=== PATIENT | female | born 1955 | race Caucasian/White ===

== ENCOUNTER 2017-04-30 07:35 | Emergency (ER) | payer OTHER ==
[~2017-04-30] VITALS: Ht 162.6 cm; Wt 108.9 kg
[~2017-04-30 07:35] MED LIST: METH-37 PO; NAPR500T4 PO; TRAM50TA PO
--- NOTE | 2017-04-30 08:27 | RAD ---
2 Views of the Chest 04/30/2017 10:01 AM Indication: Congestion, cough, fatigue Comparison: Chest radiograph December 31, 2014 Findings: Elevation of the left hemidiaphragm is noted. No pneumothorax or pleural effusion is seen. Cardiomediastinal silhouette is grossly stable. No new focal infiltrate is seen. No acute osseous changes are seen. Impression: Persistent elevation of the left hemidiaphragm. No evidence of acute cardiopulmonary process.
[2017-04-30] MEDS ORDERED: ACETAMINOPHEN 500 MG TABLET PO ONE (08:30)
[2017-04-30] MEDS ORDERED: KETOROLAC 60 MG/2 ML VIAL. IM ONE (08:30)
[2017-04-30 08:38] LABS: INFLUENZA A PATIENT NEGATIVE (NEGATIVE); INFLUENZA B PATIENT NEGATIVE (NEGATIVE)
--- NOTE | 2017-04-30 08:39 | PHYS DOC ---
Past History Past Medical History: No Pertinent History, Other Past Surgical History: Appendectomy, Cholecystectomy Alcohol Use: None Drug Use: None Adult General Chief Complaint Chief Complaint: COUGH [facility] HPI Patient is a pleasant otherwise healthy 61-year-old female with a month-long history of intermittent cough who presents with cough today. Over the last week patient is progressively had more "flulike symptoms including myalgias, runny nose, cough, ear pain for which she was seen by her doctor not once but twice. On the second visit to the doctor she received amoxicillin and Sudafed to treat her symptoms. But important over the now fifth they've her symptoms have not improved. She feels somewhat dehydrated although she is not having any nausea, vomiting, diarrhea. She denies any abdominal pain just generalized myalgias aches and pains without specific joint swelling, rash or other symptoms. [place] She's had fevers and chills but nothing documented. Patient's ear pain has been waxing and waning with no ear drainage or tinnitus. Respiratory no hearing loss and no dizziness. Patient further denies any recent travel outside the country. She is allergic to sulfa drugs Review of Systems Review of Systems Constitutional operative for subjective fevers and chills. Eyes: Denies change in visual acuity, redness, or eye pain [] HENT: Patient has had nasal congestion and ear pain without sore throat Respiratory: Patient has had nonproductive cough without shortness of breath Cardiovascular: No additional information not addressed in HPI [] GI: Denies abdominal pain, nausea, vomiting, bloody stools or diarrhea [] : Denies dysuria or hematuria [] Musculoskeletal: Denies back pain or joint pain patient is positive for myalgias [] Integument: Denies rash or skin lesions [] Neurologic: Denies headache, focal weakness or sensory changes although patient does feel dehydrated[] Endocrine: Denies polyuria or polydipsia [] All other systems were reviewed and found to be within normal limits, except as documented in this note. Current Medications Current Medications Current Medications Medications (Trade) Dose Ordered Sig/Lexy Start Time Stop Time Status Last Admin Dose Admin Acetaminophen (Tylenol) 1,000 mg 1X ONCE 04/30/17 08:30 04/30/17 08:31 DC 04/30/17 08:24 1,000 MG Ketorolac Tromethamine (Toradol) 60 mg 1X ONCE 04/30/17 08:30 04/30/17 08:31 DC 04/30/17 08:24 60 MG Allergies Allergies Allergies Coded Allergies Type Severity Reaction Last Updated Verified Sulfa (Sulfonamide Antibiotics) Allergy Unknown 12/31/14 No Physical Exam Physical Exam Other vital signs recorded on the chart at this time patient with in normal limits Constitutional: Well developed, well nourished, no acute distress, non-toxic appearance. [] HENT: Normocephalic, atraumatic, bilateral external ears normal, oropharynx moist, mild erythema no oral exudates, nose normal. Slight nasal discharge [TMs are clear bilaterally no evidence of otitis media] Eyes: PERRLA, EOMI, conjunctiva normal, no discharge. [] Neck: Normal range of motion, no tenderness, supple, no stridor. [] Cardiovascular:Heart rate regular rhythm, no murmur [] Lungs & Thorax: Bilateral breath sounds clear to auscultation [] Abdomen: Bowel sounds normal, soft, no tenderness, no masses, no pulsatile masses. [] Skin: Warm, dry, no erythema, no rash. [] . [] Extremities: No tenderness, no cyanosis, no clubbing, ROM intact, no edema. [] Neurologic: Alert and oriented X 3, normal motor function, normal sensory function, no focal deficits noted. [] Psychologic: Patient seems somewhat anxious but judgment is normal. [] Current Patient Data Vital Signs Vital Signs Date Time Temp Pulse Resp B/P (MAP) Pulse Ox O2 Delivery O2 Flow Rate FiO2 04/30/17 07:35 98.6 94 20 94 Room Air EKG EKG []EKG timed 8:07 AM demonstrates and read by me heart rate of 87 which is sinus rhythm with P wave there were QRS there is a MN interval 132 which is normal, QRS width of 80s/normal, QTC is 451 which is normal. There is no ST segment or T -wave changes consistent with acute coronary ischemia at this time there is no S1 Q 3 T3 noted. Radiology/Procedures Radiology/Procedures [] Course & Med Decision Making Course & Med Decision Making Pertinent Labs and Imaging studies reviewed. (See chart for details) Patient presented with URI-like symptoms already on amoxicillin and Sudafed. Patient says she feels somewhat dehydrated although her physical exam does not demonstrate that. She is asked to IV fluids but I have given oral challenges well which she tolerated without issue. She states she was mildly nauseated and I gave her some Zofran ODT. We discussed hydration IV versus oral and the benefits of oral hydration. She has an influenza swab pending and a chest x-ray. [] Time is now 8:32 AM patient's checks x-rays returned with no acute pulmonary infiltrate. [address] [address] IMAGING REPORT Signed PATIENT: LOLIS ROSAS ACCOUNT: [id number] : 1955 LOCATION: ER AGE: 61 SEX: F EXAM STATUS: REG ER ORD. PHYSICIAN: QUIQUE FREIRE MD REASON: Congestion, cough, fatigue PROCEDURE: CHEST PA & LATERAL 2 Views of the Chest 04/30/2017 10:01 AM Indication: Congestion, cough, fatigue Comparison: Chest radiograph December 31, 2014 Findings: Elevation of the left hemidiaphragm is noted. No pneumothorax or pleural effusion is seen. Cardiomediastinal silhouette is grossly stable. No new focal infiltrate is seen. No acute osseous changes are seen. Impression: Persistent elevation of the left hemidiaphragm. No evidence of acute cardiopulmonary process. DICTATED AND SIGNED BY: DOMINICK KLEIN MD DATE: 04/30/17822 CC: QUIQUE FREIRE MD; SHANNAN GIBBONS ~ Patient informed swab was also negative. I believe patient is suffering from a virus or a cold. I will prescribe her supportive medications like guaifenesin dextromethorphan in addition to her amoxicillin which she'll complete for the next 5 days and have her follow-up with her primary care doctor. Dragon Disclaimer Dragon Disclaimer This electronic medical record was generated, in whole or in part, using a voice recognition dictation system. Departure Departure: Impression: Primary Impression: Upper respiratory infection Disposition: 01 HOME, SELF-CARE Condition: STABLE Referrals: SHANNAN GIBBONS (PCP) Patient Instructions: Upper Respiratory Infection, Adult Additional Instructions: discharge: I've spoken with the patient and/or caregivers. I've explained the patient's condition, diagnosis and treatment plan based on information available to me at this time. I've answered the patient's and/or caregivers questions and addressed any concerns. The patient and/or caregivers have a good understanding the patient's diagnosis, condition and treatment plan as can be expected at this point. Vital signs have been stabilized. The patient's condition is stable for discharge from the emergency department. The patient will pursue further outpatient evaluation with her primary care provider or other designated consulting physician as outlined in the discharge instructions. Patient and/or caregivers are agreeable to this plan of care and follow-up instructions have been explained in detail. The patient and/or caregivers have received these instructions in written format and expressed understanding of these discharge instructions. The patient and her caregivers are aware that if any significant change in condition or worsening of symptoms should prompt him to immediately return to this of the closest emergency department. If an emergent department is not readily available I would encourage him to call 911. Scripts Ondansetron (ZOFRAN ODT) 4 Mg Tab.rapdis 1 TAB SL Q8HRS, #15 TAB Prov: QUIQUE FREIRE MD 04/30/17 Naproxen Sodium (NAPROXEN SODIUM) 275 Mg Tablet 275 MG PO BID for 7 Days, #14 TAB Prov: QUIQUE FREIRE MD 04/30/17 Guaifenesin/Dextromethorphan (MUCINEX DM ER 1,200-60 MG TAB) 1 Each Tbmp.12hr 1 TAB PO BID, #20 TAB 1 Refill Prov: QUIQUE FREIRE MD 04/30/17 QUIQUE FREIRE MD Apr 30, 2017 08:39
[2017-04-30 08:45] VITALS: BP 144/91
[2017-04-30] MEDS ORDERED: GUAI1TBM10 PO (08:48)
[2017-04-30] MEDS ORDERED: NAPR275T59 PO (08:48)
[2017-04-30] MEDS ORDERED: ONDA4TAB10 SL (08:48)
[2017-04-30] MEDS ORDERED: ONDANSETRON ODT 4 MG TAB.RAPDIS PO ONE (09:00)
--- NOTE | 2017-04-30 10:22 | EKG ---
[address] [address] Test Date: 2017-04-30 Test Time: 08:07:12 Pat Name: LOLIS ROSAS Department: Room: Gender: F Manager Drug: ASHLY : 1955 Requested By: QUIQUE FREIRE Order Number: [id number] Reading MD: Endy Baez MD Measurements Intervals [place] Rate: 87 P: 53 [place]: 132 QRS: 77 QRSD: 84 T: 35 QT: 370 QTc: 451 Interpretive Statements SINUS RHYTHM Electronically Signed On 05-06-2017 12:41:21 VICE PRINCIPAL by Endy Baez MD
== END 2017-04-30 08:55 | disposition home or self-care (01) ==
LOC: ER 07:35
DX: J06.9 Acute upper respiratory infection, unspecified (principal); H92.03 Otalgia, bilateral; Z88.2 Allergy status to sulfonamides
CPT/HCPCS: 71046; 87804; 93005; 96372; 99285; J1885; Q0162

== ENCOUNTER 2017-06-22 10:51 | Emergency (ER) | payer OTHER ==
[~2017-06-22 10:51] MED LIST changes: +GUAI1TBM10 PO; +NAPR-514 PO; +NAPR275T59 PO; -NAPR500T4 PO; +ONDA4TAB10 SL
[2017-06-22 10:55] VITALS: BP 143/81
[2017-06-22] MEDS ORDERED: IV NORMAL SALINE 1,000ML 1,000 ML IV ONE ×2 (11:15)
--- NOTE | 2017-06-22 11:20 | PHYS DOC ---
Past History Past Medical History: No Pertinent History, Other Past Surgical History: Appendectomy, Cholecystectomy Alcohol Use: None Drug Use: None Adult General Chief Complaint Chief Complaint: FLU SYMPTOM HPI HPI Patient is a 61 year old female who presents with nausea vomiting diarrhea. She states her was sick from Friday until yesterday with the same symptoms she has. She states on she developed nausea vomiting and loose stools. She denies any blood in her vomit or stools. She states this morning shortly had one loose stool and hasn't vomited today. She states yesterday she had 8 loose stools. She has some left over ODT Zofran and took it yesterday and today and feels better but still feels very tired. She denies any chest pain shortness of breath or abdominal pain. Review of Systems Review of Systems Constitutional: Denies fever or chills [] Eyes: Denies change in visual acuity, redness, or eye pain [] HENT: Denies nasal congestion or sore throat [] Respiratory: Denies cough or shortness of breath [] Cardiovascular: No additional information not addressed in HPI [] GI: Denies abdominal pain, or bloody stools, positive for nausea, vomiting, diarrhea [] : Denies dysuria or hematuria [] Musculoskeletal: Denies back pain or joint pain [] Integument: Denies rash or skin lesions [] Neurologic: Denies headache, focal weakness or sensory changes [] Endocrine: Denies polyuria or polydipsia [] All other systems were reviewed and found to be within normal limits, except as documented in this note. Current Medications Current Medications Current Medications Medications (Trade) Dose Ordered Sig/Lexy Start Time Stop Time Status Last Admin Dose Admin Sodium Chloride 1,000 ml @ 1,000 mls/hr 1X ONCE 06/22/17 11:15 06/22/17 12:14 Allergies Allergies Allergies Coded Allergies Type Severity Reaction Last Updated Verified Sulfa (Sulfonamide Antibiotics) Allergy Unknown 12/31/14 No Physical Exam Physical Exam Constitutional: Well developed, well nourished, no acute distress, non-toxic appearance. [] HENT: Normocephalic, atraumatic, bilateral external ears normal, oropharynx moist, no oral exudates, nose normal. [] Eyes: PERRLA, EOMI, conjunctiva normal, no discharge. [] Neck: Normal range of motion, no tenderness, supple, no stridor. [] Cardiovascular:Heart rate regular rhythm, no murmur [] Lungs & Thorax: Bilateral breath sounds clear to auscultation [] Abdomen: Bowel sounds normal, soft, no tenderness, no masses, no pulsatile masses. [] Skin: Warm, dry, no erythema, no rash. [] Back: No tenderness, no CVA tenderness. [] Extremities: No tenderness, no cyanosis, no clubbing, ROM intact, no edema. [] Neurologic: Alert and oriented X 3, normal motor function, normal sensory function, no focal deficits noted. [] Psychologic: Affect normal, judgement normal, mood normal. [] EKG EKG [] Radiology/Procedures Radiology/Procedures [] Impressions: Gastroenteritis Dehydration Nausea vomiting/diarrhea UTI Course & Med Decision Making Course & Med Decision Making Pertinent Labs and Imaging studies reviewed. (See chart for details) Urine shows dehydration and white blood cells but higher than anticipated for contamination. We'll treat with Cipro for 3 days and discharged home. Return precautions given. She received IV fluids and has ODT Zofran at home. Dragon Disclaimer Dragon Disclaimer This electronic medical record was generated, in whole or in part, using a voice recognition dictation system. Departure Departure: Impression: Primary Impression: Viral gastroenteritis Additional Impression: UTI (urinary tract infection) Disposition: 01 HOME, SELF-CARE Condition: STABLE Referrals: SHANNAN GIBBONS (PCP) Patient Instructions: Viral Gastroenteritis Additional Instructions: You were seen today for nausea vomiting and diarrhea. You probably are at the end of your symptoms and should be better in the next few days. You received IV fluids and basic labs today. You can continue taking your Zofran oral dissolvable tablets that you have at home for nausea. You can also try Imodium AD they can purchase [id number]. If you continue to have diarrhea, develop high fevers, uncontrolled nausea vomiting or other concerns please return back to ER. You have bacteria in your urine and will need take antibiotics for next 3 days. You should follow-up with your primary care physician within the next few days. Scripts Ciprofloxacin Hcl (CIPRO) 500 Mg Tablet 1 TAB PO BID for 3 Days, #6 TAB Prov: RAFAEL VELASCO MD 06/22/17 Problem Qualifiers RAFAEL VELASCO MD Jun 22, 2017 11:20
[2017-06-22 11:39] LABS: INFLUENZA A PATIENT NEGATIVE (NEGATIVE); INFLUENZA B PATIENT NEGATIVE (NEGATIVE)
[2017-06-22 11:47] LABS: BASO % 0 % (0-3); EOS # 0.1 x10^3/uL (0.0-0.7); EOS % 1 % (0-3); HEMATOCRIT 42.7 % (36.0-47.0); HEMOGLOBIN 14.6 g/dL (12.0-15.5); LYMPH # 1.2 x10^3/uL (1.0-4.8); LYMPH % 24 % (24-48); MEAN CORPUSCULAR HEMOGLOBIN 32 pg (25-35); MEAN CORPUSCULAR HGB CONC 34 g/dL (31-37); MEAN CORPUSCULAR VOLUME 93 fL (79-100); MONO # 0.6 x10^3/uL (0.0-1.1); MONO % 11 % (0-9); NEUT # 3.3 x10^3uL (1.8-7.7); NEUT % 63 % (31-73); PLATELET COUNT 300 x10^3/uL (140-400); RED BLOOD COUNT 4.59 x10^6/uL (3.50-5.40); WHITE BLOOD COUNT 5.1 x10^3/uL (4.0-11.0)
[2017-06-22 12:02] LABS: ALBUMIN 3.4 g/dL (3.4-5.0); CALCIUM 8.2 mg/dL (8.5-10.1); CREATININE 0.9 mg/dL (0.6-1.0); DIRECT BILIRUBIN 0.1 mg/dL (0.0-0.2); GFR 64.1; POTASSIUM 3.7 mmol/L (3.5-5.1); TOTAL BILIRUBIN 0.4 mg/dL (0.2-1.0); TOTAL PROTEIN 7.7 g/dL (6.4-8.2)
[2017-06-22 13:08] LABS: CLARITY,URINE CLOUDY; COLOR,URINE YELLOW; GLUCOSE,URINE NEG (NEG)
[2017-06-22 13:09] LABS: BILIRUBIN,URINE NEG (NEG)
[2017-06-22 13:10] LABS: NITRITE,URINE NEG (NEG); UROBILINOGEN,URINE 0.2 mg/dL (0.2 mg/dL)
[2017-06-22 13:11] LABS: BACTERIA,URINE MOD /HPF (0-FEW); GRANULAR CASTS,URINE OCC /HPF; SQUAMOUS EPITHELIAL CELL,UR MANY /LPF; WBC,URINE 20-40 /HPF (0-4)
[2017-06-22] MEDS ORDERED: CIPR500T94 PO (13:25)
== END 2017-06-22 13:36 | disposition home or self-care (01) ==
LOC: ER 10:51
DX: A08.4 Viral intestinal infection, unspecified (principal); N39.0 Urinary tract infection, site not specified; E86.0 Dehydration; Z88.2 Allergy status to sulfonamides
CPT/HCPCS: 36415; 80048; 80076; 81001; 85025; 87086; 87804; 96360; 96361; 99284-25; J7030

== ENCOUNTER 2017-06-24 07:54 | Emergency (ER) | payer OTHER ==
[~2017-06-24 07:54] MED LIST changes: +CIPR500T94 PO
[2017-06-24] MEDS ORDERED: IV NORMAL SALINE 1,000ML 1,000 ML IV ONE (09:00)
[2017-06-24 09:22] LABS: BASO % 1 % (0-3); EOS % 1 % (0-3); HEMATOCRIT 38.5 % (36.0-47.0); HEMOGLOBIN 13.2 g/dL (12.0-15.5); LYMPH # 2.3 x10^3/uL (1.0-4.8); LYMPH % 47 % (24-48); MEAN CORPUSCULAR HEMOGLOBIN 32 pg (25-35); MEAN CORPUSCULAR HGB CONC 34 g/dL (31-37); MEAN CORPUSCULAR VOLUME 94 fL (79-100); MONO # 0.6 x10^3/uL (0.0-1.1); MONO % 12 % (0-9); NEUT # 1.9 x10^3uL (1.8-7.7); NEUT % 39 % (31-73); PLATELET COUNT 261 x10^3/uL (140-400); RED BLOOD COUNT 4.11 x10^6/uL (3.50-5.40); RED CELL DISTRIBUTION WIDTH 12.7 % (11.5-14.5); WHITE BLOOD COUNT 4.8 x10^3/uL (4.0-11.0)
[2017-06-24 09:29] LABS: CALCIUM 8.2 mg/dL (8.5-10.1); CREATININE 0.9 mg/dL (0.6-1.0); GFR 64.1; MAGNESIUM 1.9 mg/dL (1.8-2.4)
[2017-06-24 09:30] LABS: POTASSIUM 3.7 mmol/L (3.5-5.1)
[2017-06-24] MEDS ORDERED: KETOROLAC 30 MG/ML VIAL. IV ONE (10:00)
[2017-06-24] MEDS ORDERED: CEPH-264 PO (10:36)
--- NOTE | 2017-06-24 10:36 | PHYS DOC ---
Past History Past Medical History: No Pertinent History Past Surgical History: Appendectomy, Cholecystectomy Alcohol Use: None Drug Use: None Adult General Chief Complaint Chief Complaint: BACK PAIN - NO INJURY HPI HPI Patient is a 61 year old F who presents with bilateral lower extremity pain that is dull and equal on both sides. Tammi states that her symptoms started after starting Cipro for a urinary tract infection 3 days ago. She denies bowel or bladder difficulty. She has no other associated symptoms. She has no exacerbating or alleviating factors. Review of Systems Review of Systems Constitutional: Denies fever or chills [] Eyes: Denies change in visual acuity, redness, or eye pain [] HENT: Denies nasal congestion or sore throat [] Respiratory: Denies cough or shortness of breath [] Cardiovascular: No additional information not addressed in HPI [] GI: Denies abdominal pain, nausea, vomiting, bloody stools or diarrhea [] : Denies dysuria or hematuria [] Musculoskeletal: Negative except history of present illness Integument: Denies rash or skin lesions [] Neurologic: Denies headache, focal weakness or sensory changes [] Endocrine: Denies polyuria or polydipsia [] All other systems were reviewed and found to be within normal limits, except as documented in this note. Family History Family History No pertinent family medical history was reported Current Medications Current Medications Current Medications Medications (Trade) Dose Ordered Sig/Lexy Start Time Stop Time Status Last Admin Dose Admin Ketorolac Tromethamine (Toradol) 30 mg 1X ONCE 06/24/17 10:00 06/24/17 10:01 DC 06/24/17 10:00 30 MG Sodium Chloride 1,000 ml @ 1,000 mls/hr 1X ONCE 06/24/17 09:00 06/24/17 09:59 DC 06/24/17 09:09 1,000 MLS/HR Allergies Allergies Allergies Coded Allergies Type Severity Reaction Last Updated Verified Sulfa (Sulfonamide Antibiotics) Allergy Unknown 12/31/14 No Physical Exam Physical Exam Constitutional: Well developed, well nourished, no acute distress, non-toxic appearance. [] HENT: Normocephalic, atraumatic, bilateral external ears normal, oropharynx moist, no oral exudates, nose normal. [] Eyes: EOMI, conjunctiva normal, no discharge. [] Neck: Normal range of motion, no tenderness, supple, no stridor. [] Cardiovascular:Heart rate regular rhythm, Lungs & Thorax: Bilateral breath sounds clear to auscultation [] Abdomen: Bowel sounds normal, soft, no tenderness, no masses, no pulsatile masses. [] Skin: Warm, dry, no erythema, no rash. [] Back: Mild bilateral lumbar paraspinal tenderness Extremities: No tenderness, no cyanosis, no clubbing, ROM intact, no edema. [] Neurologic: Alert and oriented X 3, normal motor function, normal sensory function, no focal deficits noted. [] Psychologic: Affect normal, judgement normal, mood normal. [] Current Patient Data Vital Signs Vital Signs Date Time Temp Pulse Resp B/P (MAP) Pulse Ox O2 Delivery O2 Flow Rate FiO2 06/24/17 08:00 98.1 84 16 95 Room Air Lab Results Laboratory Tests Test 06/24/17 09:00 White Blood Count 4.8 x10^3/uL (4.0-11.0) Red Blood Count 4.11 x10^6/uL (3.50-5.40) Hemoglobin 13.2 g/dL (12.0-15.5) Hematocrit 38.5 % (36.0-47.0) Mean Corpuscular Volume 94 fL (79-100) Mean Corpuscular Hemoglobin 32 pg (25-35) Mean Corpuscular Hemoglobin Concent 34 g/dL (31-37) Red Cell Distribution Width 12.7 % (11.5-14.5) Platelet Count 261 x10^3/uL (140-400) Neutrophils (%) (Auto) 39 % (31-73) Lymphocytes (%) (Auto) 47 % (24-48) Monocytes (%) (Auto) 12 % (0-9) H Eosinophils (%) (Auto) 1 % (0-3) Basophils (%) (Auto) 1 % (0-3) Neutrophils # (Auto) 1.9 x10^3uL (1.8-7.7) Lymphocytes # (Auto) 2.3 x10^3/uL (1.0-4.8) Monocytes # (Auto) 0.6 x10^3/uL (0.0-1.1) Eosinophils # (Auto) 0.0 x10^3/uL (0.0-0.7) Basophils # (Auto) 0.0 x10^3/uL (0.0-0.2) Sodium Level 139 mmol/L (136-145) Potassium Level 3.7 mmol/L (3.5-5.1) Chloride Level 104 mmol/L (98-107) Carbon Dioxide Level 25 mmol/L (21-32) Anion Gap 10 (6-14) Blood Urea Nitrogen 6 mg/dL (7-20) L Creatinine 0.9 mg/dL (0.6-1.0) Estimated GFR (Cockcroft-Gault) 64.1 Glucose Level 120 mg/dL (70-99) H Calcium Level 8.2 mg/dL (8.5-10.1) L Magnesium Level 1.9 mg/dL (1.8-2.4) EKG EKG [] Radiology/Procedures Radiology/Procedures [] Course & Med Decision Making Course & Med Decision Making Pertinent Labs and Imaging studies reviewed. (See chart for details) Her antibiotic was changed Dragon Disclaimer Dragon Disclaimer This electronic medical record was generated, in whole or in part, using a voice recognition dictation system. Departure Departure: Impression: Primary Impression: Muscle spasm Disposition: HOME, SELF-CARE Condition: STABLE Referrals: SHANNAN GIBBONS (PCP) Patient Instructions: Sciatica Additional Instructions: Tammi was seen in the emergency department for bilateral leg pain. No emergency medical condition was found on history or physical exam. Her symptoms were mildly improved with medication in the emergency room. She was given a prescription for Keflex to replace her Cipro which she is taking for urinary tract infection. She was advised follow-up with her primary care doctor as needed for further management and to return the emergency room if she develops new or worsening symptoms. Scripts Cephalexin (KEFLEX) 500 Mg Capsule 1 CAP PO TID for 7 Days, #21 CAP Prov: GIRMA KRAUSE MD 06/24/17 GIRMA KRAUSE MD Jun 24, 2017 10:36
[2017-06-24 10:45] VITALS: BP 143/75
== END 2017-06-24 10:45 | disposition home or self-care (01) ==
LOC: ER 07:54
DX: M62.831 Muscle spasm of calf (principal); M54.5 Low back pain; Z87.440 Personal history of urinary (tract) infections; Z88.2 Allergy status to sulfonamides
CPT/HCPCS: 36415; 80048; 83735; 85025; 96361; 96374; 99284; J1885; J7030

== ENCOUNTER → 2018-04-27 | Outpatient (CLI) | payer OTHER ==
[~2018-04-27] MED LIST changes: +CEPH-264 PO
--- NOTE | 2018-04-27 14:23 | RAD ---
Indication: Proteinuria, hematuria. TECHNIQUE: Ultrasound of the kidneys and bladder COMPARISON: None FINDINGS: The right kidney measures 10.3 x 4.8 x 5.1 cm (longitudinal, AP, transverse) without hydronephrosis. The prevoid bladder volume of 21 cc. Bilateral ureteral jets not seen. Left kidney measures 11.4 x 5.2 x 5.3 cm without hydronephrosis. IMPRESSION: No hydronephrosis. Electronically signed by: Lamonte Eng DO (04/27/2018 2:19 PM) [id number]
== END | disposition home or self-care (01) ==
LOC: US 10:45
PROVIDERS: ATTEND Internal Medicine Nephrology
DX: R31.9 Hematuria, unspecified (principal); R80.9 Proteinuria, unspecified
CPT/HCPCS: 76770